=== PATIENT | male | born 2000 | race Caucasian/White ===

== ENCOUNTER 2025-01-25 11:56 | Emergency (ER) | payer OTHER ==
[~2025-01-25] VITALS: Ht 167.6 cm; Wt 58.0 kg
[2025-01-25 12:50] VITALS: TEMP 98.8
[2025-01-25 14:09] LABS: PLATELET COUNT (AUTO) 252 K/uL (150-450); RED BLOOD CELL COUNT(AUTO) 4.59 MIL/uL (4.50-5.90); RED CELL DISTRIBUTION WIDTH 12.8 % (11.5-14.5); WHITE BLOOD COUNT (AUTO) 8.4 K/uL (4.5-11.0)
[2025-01-25 14:20] LABS: CALCIUM, TOTAL 9.7 mg/dL (8.8-10.5); CREATININE 0.93 mg/dL (0.60-1.30); GLOMERULAR FILTR. RATE CALC > 60 mL/min (>60); GLUCOSE,RANDOM 108 mg/dL (70-110); SODIUM SERUM 135 mmol/L (136-145); UREA NITROGEN, BLOOD 9 mg/dL (7-18)
[2025-01-25 14:22] LABS: PH,URINE DRUG SCREEN 6.5 (5.0-8.0)
[2025-01-25 14:37] LABS: ALCOHOL, URINE DRUG SCREEN NEGATIVE (NEGATIVE); AMPHET/METH SCREEN,URINE NEGATIVE (NEGATIVE); BARBITURATE SCREEN, URINE NEGATIVE (NEGATIVE); CANNABINOID SCREEN,URINE NEGATIVE (NEGATIVE); COCAINE SCREEN,URINE NEGATIVE (NEGATIVE); METHADONE SCREEN, URINE NEGATIVE (NEGATIVE)
[2025-01-25 15:45] VITALS: BP 125/60; PULSE 70; RESP 16; O2SAT 98
== END 2025-01-25 16:42 ==
LOC: EMS 12:17
DX: Z02.89 Encounter for other administrative examinations (principal); F14.10 Cocaine abuse, uncomplicated
CPT/HCPCS: 74176; 80048; 80307; 85025; 99284